=== PATIENT | female | born 1990 | race Caucasian/White ===

== ENCOUNTER 2016-09-01 08:13 | Emergency (ER) | payer SELFPAY ==
[2016-09-01] MEDS ORDERED: SODIUM CHLORIDE 0.9% 1,000 ML IV STA (08:47)
[2016-09-01] MEDS ORDERED: ONDANSETRON 4 MG/2 ML VIAL IVP STA (09:09)
[2016-09-01] MEDS ORDERED: FAMOTIDINE 20 MG/2 ML VIAL IV STA (09:09)
[2016-09-01] MEDS ORDERED: MAG HYDROX/AL HYDROX/SIMETH 30 ML, HYOSCYAMINE ELIXIR 10 ML, CIMETIDINE HCL 300 MG PO STA ×3 (09:10)
[2016-09-01 09:16] LABS: Basophils # (A) 0.1 k/uL (0-0.2); Basophils % (A) 1 %; CH 30.6; CHCM 32.4; Eosinophils # (A) 0.4 k/uL (0-0.7); Eosinophils % (A) 4 %; HCT 44.9 % (34.0-46.0); HDW 2.21; HGB 14.3 gm/dL (11.4-16.0); Luc # (Auto) 0.15; Luc % (Auto) 2; Lymphocytes # (A) 1.6 k/uL (1.0-4.8); Lymphocytes % (A) 19 %; MCH 30.3 pg (25.0-35.0); MCHC 31.9 g/dL (31.0-37.0); Monocytes # (A) 0.5 k/uL (0-1.0); Monocytes % (A) 6 %; Neutrophils # (A) 6.1 k/uL (1.3-7.7); Neutrophils % (A) 69 %; RBC 4.73 m/uL (3.80-5.40); RDW 12.7 % (11.5-15.5); WBC 8.8 k/uL (3.8-10.6); WBC (Perox) 8.85
[2016-09-01 09:19] LABS: Amorphous Sediment,Urine Rare /hpf; Appearance,Urine Clear (Clear); Bilirubin,Urine Negative (Negative); Glucose,Urine (UA) Negative (Negative); Ketones,Urine Negative (Negative); Leukocyte Esterase,Urine Trace (Negative); Mucus,Urine Rare /hpf; Nitrite,Urine Negative (Negative); PH, Urine 6.5 (5.0-8.0); Particle Count 5174; Protein,Urine Negative (Negative); Specific Gravity,Urine 1.017 (1.001-1.035); Squamous Epithelial Cell,Urine 2 /hpf (0-4); UA Billing (MACRO vs. MICRO) MICRO; Urobilinogen,Urine <2.0 mg/dL (<2.0); WBC,Urine 1 /hpf (0-5)
--- NOTE | 2016-09-01 09:37 | ED ---
Abdominal Pain HPI - General Chief Complaint: Abdominal Pain Stated Complaint: abd pain Time Seen by Provider: 09/01/16 08:37 Source: patient, RN notes reviewed Mode of arrival: ambulatory Limitations: no limitations - History of Present Illness Initial Comments: 26-year-old female presents emergency Department chief complaint abdominal pain. Patient states she's had ongoing abdominal pain but seems to be worse. Patient states that she had a cholecystectomy performed at [facility] by a surgeon unknown who. Patient states that has not helped the pain much. Patient states that she feels nauseated. Patient states that the pain has been getting much more severe she states that she has she blacked out the other day from the pain. Patient states this happened at work and she was instructed to go to [facility] though she states they did not do anything for her. Patient states that she does not take any medications including antacids. She states that she gets a pain in her epigastric region that radiates up her chest. Patient denies any back pain associated with. Patient any shortness of breath. Denies palpitations. Patient denies fever, chills, dysuria, hematuria. - Related Data Previous Rx's Medication Instructions Recorded Ranitidine HCl [Zantac] 150 mg PO BID #28 tab 09/01/16 Allergies Allergy/AdvReac Type Severity Reaction Status Date / Time No Known Allergies Allergy Verified 09/01/16 08:41 Review of Systems ROS Statement: Those systems with pertinent positive or pertinent negative responses have been documented in the HPI. ROS Other: All systems not noted in ROS Statement are negative. Past Medical History Past Medical History: Asthma History of Any Multi-Drug Resistant Organisms: None Reported Past Surgical History: Cholecystectomy Past Psychological History: Anxiety Smoking Status: Current every day smoker Past Alcohol Use History: None Reported Past Drug Use History: None Reported General Exam Limitations: no limitations General appearance: alert, in no apparent distress Head exam: Present: atraumatic, normocephalic, normal inspection Eye exam: Present: normal appearance, PERRL, EOMI. Absent: scleral icterus, conjunctival injection, periorbital swelling Neck exam: Present: normal inspection, full ROM. Absent: tenderness, meningismus, lymphadenopathy Respiratory exam: Present: normal lung sounds bilaterally. Absent: respiratory distress, wheezes, rales, rhonchi, stridor Cardiovascular Exam: Present: regular rate, normal rhythm, normal heart sounds. Absent: systolic murmur, diastolic murmur, rubs, gallop, clicks GI/Abdominal exam: Present: soft, tenderness (Moderate epigastric discomfort), normal bowel sounds. Absent: distended, guarding, rebound, rigid Back exam: Absent: CVA tenderness (R), CVA tenderness (L) Neurological exam: Present: alert, oriented X3, CN II-XII intact Skin exam: Present: warm, dry, intact, normal color. Absent: rash Course Vital Signs 09/01/16 08:19 Temperature 98.2 F Pulse Rate 90 Respiratory 20 Rate Blood Pressure 120/76 O2 Sat by Pulse 99 Oximetry Medical Decision Making - Medical Decision Making 26-year-old female presented for abdominal discomfort. Patient states her pain is resolved with GI cocktail. Patient states that she would like to be discharged at this time. We did review lab work which showed no acute abnormality. She'll follow-up with her primary care physician. - Lab Data Result diagrams: 09/01/16 08:55 09/01/16 08:55 Lab Results 09/01/16 09/01/16 09/01/16 Range/Units 08:55 08:55 08:55 WBC 8.8 (3.8-10.6) k/uL RBC 4.73 (3.80-5.40) m/uL Hgb 14.3 (11.4-16.0) gm/dL Hct 44.9 (34.0-46.0) % MCV 95.0 (80.0-100.0) fL MCH 30.3 (25.0-35.0) pg MCHC 31.9 (31.0-37.0) g/dL RDW 12.7 (11.5-15.5) % Plt Count 302 (150-450) k/uL Neutrophils % 69 % Lymphocytes % 19 % Monocytes % 6 % Eosinophils % 4 % Basophils % 1 % Neutrophils # 6.1 (1.3-7.7) k/uL Lymphocytes # 1.6 (1.0-4.8) k/uL Monocytes # 0.5 (0-1.0) k/uL Eosinophils # 0.4 (0-0.7) k/uL Basophils # 0.1 (0-0.2) k/uL Sodium 142 (137-145) mmol/L Potassium 4.2 (3.5-5.1) mmol/L Chloride 109 H (98-107) mmol/L Carbon Dioxide 27 (22-30) mmol/L Anion Gap 6 mmol/L BUN 7 (7-17) mg/dL Creatinine 0.74 (0.52-1.04) mg/dL Est GFR (MDRD) Af Amer >60 (>60 ml/min/1.73 sqM) Est GFR (MDRD) Non-Af >60 (>60 ml/min/1.73 sqM) Glucose 88 (74-99) mg/dL Calcium 9.4 (8.4-10.2) mg/dL Total Bilirubin 0.3 (0.2-1.3) mg/dL AST 13 L (14-36) U/L ALT 30 (9-52) U/L Alkaline Phosphatase 63 (38-126) U/L Total Protein 6.5 (6.3-8.2) g/dL Albumin 3.5 (3.5-5.0) g/dL Amylase <30 L (30-110) U/L Lipase 46 (23-300) U/L Urine Color Urine Appearance (Clear) Urine pH (5.0-8.0) Ur Specific [place] (1.001-1.035) Urine Protein (Negative) Urine Glucose (UA) (Negative) Urine Ketones (Negative) Urine Blood (Negative) Urine Nitrate (Negative) Urine Bilirubin (Negative) Urine Urobilinogen (<2.0) mg/dL Ur Leukocyte Esterase (Negative) Urine WBC (0-5) /hpf Ur Squamous Epith Cells (0-4) /hpf Amorphous Sediment (None) /hpf Urine Mucus (None) /hpf Urine HCG, Qual Not Detected (Not Detectd) 09/01/16 Range/Units 08:55 WBC (3.8-10.6) k/uL RBC (3.80-5.40) m/uL Hgb (11.4-16.0) gm/dL Hct (34.0-46.0) % MCV (80.0-100.0) fL MCH (25.0-35.0) pg MCHC (31.0-37.0) g/dL RDW (11.5-15.5) % Plt Count (150-450) k/uL Neutrophils % % Lymphocytes % % Monocytes % % Eosinophils % % Basophils % % Neutrophils # (1.3-7.7) k/uL Lymphocytes # (1.0-4.8) k/uL Monocytes # (0-1.0) k/uL Eosinophils # (0-0.7) k/uL Basophils # (0-0.2) k/uL Sodium (137-145) mmol/L Potassium (3.5-5.1) mmol/L Chloride (98-107) mmol/L Carbon Dioxide (22-30) mmol/L Anion Gap mmol/L BUN (7-17) mg/dL Creatinine (0.52-1.04) mg/dL Est GFR (MDRD) Af Amer (>60 ml/min/1.73 sqM) Est GFR (MDRD) Non-Af (>60 ml/min/1.73 sqM) Glucose (74-99) mg/dL Calcium (8.4-10.2) mg/dL Total Bilirubin (0.2-1.3) mg/dL AST (14-36) U/L ALT (9-52) U/L Alkaline Phosphatase (38-126) U/L Total Protein (6.3-8.2) g/dL Albumin (3.5-5.0) g/dL Amylase (30-110) U/L Lipase (23-300) U/L Urine Color Yellow Urine Appearance Clear (Clear) Urine pH 6.5 (5.0-8.0) Ur Specific [place] 1.017 (1.001-1.035) Urine Protein Negative (Negative) Urine Glucose (UA) Negative (Negative) Urine Ketones Negative (Negative) Urine Blood Negative (Negative) Urine Nitrate Negative (Negative) Urine Bilirubin Negative (Negative) Urine Urobilinogen <2.0 (<2.0) mg/dL Ur Leukocyte Esterase Trace H (Negative) Urine WBC 1 (0-5) /hpf Ur Squamous Epith Cells 2 (0-4) /hpf Amorphous Sediment Rare H (None) /hpf Urine Mucus Rare H (None) /hpf Urine HCG, Qual (Not Detectd) Disposition Clinical Impression: Gastritis, Abdominal pain, Vasovagal syncope Disposition: HOME SELF-CARE Condition: Stable Instructions: Gastritis (ED) Additional Instructions: Please return to the Emergency Department if symptoms worsen or any other concerns. Prescriptions: Ranitidine HCl [Zantac] 150 mg PO BID #28 tab Time of Disposition: 10:43
[2016-09-01 09:43] LABS: ALT 30 U/L (9-52); AST 13 U/L (14-36); Alkaline Phosphatase 63 U/L (38-126); Amylase <30 U/L (30-110); Anion Gap 6 mmol/L; Blood Urea Nitrogen 7 mg/dL (7-17); Calcium 9.4 mg/dL (8.4-10.2); Carbon Dioxide 27 mmol/L (22-30); Chloride 109 mmol/L (98-107); Glucose 88 mg/dL (74-99); Non-African American GFR(MDRD) >60 (>60 ml/min/1.73 sqM); Potassium 4.2 mmol/L (3.5-5.1); Sodium 142 mmol/L (137-145); Total Bilirubin 0.3 mg/dL (0.2-1.3); Total Protein 6.5 g/dL (6.3-8.2)
--- NOTE | 2016-09-01 10:16 | XR ---
Abdomen HISTORY: Pain and nausea Frontal view of the abdomen on 2 images There are air-fluid levels without bowel distention. The right upper quadrant. Lung bases are clear. There is mild spinal curvature. No pneumoperitoneum. IMPRESSION: Correlate for possible underlying enteritis or ileus, follow-up as indicated.
[2016-09-01 10:55] VITALS: BP 120/70; PULSE 74; RESP 16; TEMP 97.8
== END 2016-09-01 10:54 | disposition home or self-care (01) ==
LOC: EC 08:13
DX: K29.70 Gastritis, unspecified, without bleeding (principal); R55 Syncope and collapse; F17.200 Nicotine dependence, unspecified, uncomplicated
CPT/HCPCS: 99284; 96374; 96375; 96361; 36415; 93005; 80053; 82150; 83690; 85025; 81001; 81025; 74000; J2405